=== PATIENT | male | born 1970 | race Caucasian/White ===

== ENCOUNTER 2020-05-01 09:18 | Emergency (ER) | payer OTHER ==
[~2020-05-01] VITALS: Ht 177.8 cm; Wt 77.1 kg
[~2020-05-01 09:18] MED LIST: FLONASE 0.05% 121 EA NAS; ZITHROMAX Z PA250 MG PO; ZYRTEC10 M1 PO
== END 2020-05-01 12:30 | disposition left against medical advice (07) ==
LOC: ED 09:18
DX: S62.607A Fracture of unspecified phalanx of left little finger, initial encounter for closed fracture (principal); X58.XXXA Exposure to other specified factors, initial encounter; Y93.89 Activity, other specified; Y92.89 Other specified places as the place of occurrence of the external cause; Y99.8 Other external cause status